=== PATIENT | female | born 1965 | race Caucasian/White ===

== ENCOUNTER → 2020-11-03 13:01 | Outpatient (CLI) | payer OTHER, MEDICAID, SELFPAY ==
[2020-11-03 15:15] LABS: COVID19 -Nasal RAPID Negative (Negative)
== END ==
PROVIDERS: Visit Provider Physician Assistant
DX: Z20.822 Contact with and (suspected) exposure to COVID-19 (principal)
CPT/HCPCS: 87635; C9803

== ENCOUNTER 2020-11-05 14:26 | Day surgery (SDC) | payer OTHER, MEDICAID, SELFPAY ==
[2020-11-05] VITALS (10 sets, daily range): BP systolic 77–128; BP diastolic 40–78; PULSE 62–77; RESP 10–20; TEMP 36.2–37.4; O2SAT 10–100; BMI 18.7
[2020-11-05] MEDS: LACTATED RINGERS 1,000 ML 200 ML IV (14:00)
--- NOTE | 2020-11-05 15:30 | PM.HP.1 ---
History of Present Illness History of Present Illness [place] [facility] [place] Medical History (Updated 11/05/20 @ 14:16 by Keerthi Swartz RN) Alcohol abuse Alcoholic cirrhosis of liver with ascites Hepatic failure Family & Social History Social History: household members family Tobacco & Substance use: Tobacco type cigarettes Smoking Status Current every day smoker alcohol intake former Substance Use Type does not use Meds Home Medications and Allergies Home Medications Medication Instructions Recorded Confirmed Type alprazolam 0.5 mg PO DAILY 11/05/20 11/05/20 History biotin 1,000 mcg PO DAILY 11/05/20 11/05/20 History ferrous sulfate 300 mg PO DAILY 11/05/20 11/05/20 History folic acid 1 mg PO DAILY 11/05/20 11/05/20 History omeprazole 20 mg PO DAILY PRN 11/05/20 11/05/20 History ondansetron 4 mg PO Q6H PRN 11/05/20 11/05/20 History oxycodone 5 mg PO Q4H PRN 11/05/20 11/05/20 History potassium chloride 20 meq PO BID 11/05/20 11/05/20 History rifaximin [Xifaxan] 550 mg PO BID 11/05/20 11/05/20 History Review of Systems Review of Systems ROS: Yes All systems reviewed with the patient and are negative except as otherwise documented Exam Vital Signs (past 8 hours): - 11/05/20 15:07 Temperature 99.3 F Pulse Rate 63 Respiratory Rate 20 Blood Pressure 128/68 Pulse Oximetry 99 Oxygen Delivery Method Room Air Narrative Exam Narrative: Awake alert and oriented x3, pupils equal round reactive to light, oropharynx clear, heart regular rate and rhythm, lungs clear to auscultation bilaterally, abdomen nontender and nondistended, extremities without edema, no gross neurologic deficits noted Assessment & Plan Assessment & Plan narrative: History of cirrhosis, need to rule out variceal. EGD today COVID-19 COVID-19 status: Negative Quality MIPS - Admit Advanced Care Plan / Current Medications Measures: #47 ? Advanced Care Plan Clinician documentation instruction: document at admission. [] I confirmed that the patient's Advance Care Plan is present, code status is documented, or surrogate decision maker is listed in the patient?s medical record. [SATISFIES MIPS PERFORMANCE] If Yes, Stop Here [] The patient?s Advance Care plan is not present because: (select) [MIPS PERFORMANCE EXCEPTION/EXCLUSION] [] I confirmed today that the patient does not wish or was not able to name a surrogate decision maker or provide an Advance Care Plan. [] Hospice care is currently being provided or has been provided this calendar year [] I did NOT confirm today the presence of an Advance Care Plan or surrogate decision maker documented within the patient's medical record. [DOES NOT SATISFY MIPS PERFORMANCE] #130 - Documentation of Current Medications in the Medical Record Clinician documentation instruction: use macro the first time you see a patient. [] I have utilized all available immediate resources to obtain, update, or review the patient?s current medications. [SATISFIES MIPS PERFORMANCE] If Yes, Stop Here [] The patient is not eligible for medication reconciliation; the patient is in an emergent medical situation where delaying treatment would jeopardize the patient?s health. [MIPS PERFORMANCE EXCEPTION/EXCLUSION] [] I did NOT confirm, update or review the patient's current list of medications today. [DOES NOT SATISFY MIPS PERFORMANCE] MIPS - CL Central Venous Catheter Placement Measure: #76 ? Prevention of Central Venous Catheter (CVC) ? Related Bloodstream Infection Clinician documentation instruction: use macro every time you place a central line. [] All elements of Maximal Sterile Barrier Technique, including hand hygiene, skin prep, and sterile ultrasound technique (if used) were followed. [SATISFIES MIPS PERFORMANCE] If Yes, Stop Here [] If ?No?, the medical reason all elements were NOT used for medical reason [] (ex. emergent condition). [] Maximal Sterile Barrier Technique was not followed, no reason provided [DOES NOT SATISFY MIPS PERFORMANCE] MIPS - DC Heart Failure Measures: #5 - Heart Failure (HF): Angiotensin-Converting Enzyme (EDUIN) Inhibitor or Angiotensin Receptor Dex (ARB) Therapy for Left Ventricular Systolic Dysfunction (LVSD) and #8 - Heart Failure (HF): Beta-Dex Therapy for Left Ventricular Systolic Dysfunction (LVSD) Clinician documentation instruction: use macro at every CHF discharge. [] The patient has current or prior documentation of left ventricular ejection fraction (LVEF) less than 40%, or moderate or severely depressed left ventricular systolic function. Answer both: [SATISFIES MIPS PERFORMANCE] [] The patient was prescribed or already taking an Angiotensin-Converting Enzyme (EDUIN) Inhibitor, or Angiotensin Receptor Dex (ARB). [] The patient was prescribed or already taking a beta-dex. If Yes to Both, Stop Here [] Patient not prescribed/taking: [MIPS PERFORMANCE EXCEPTION/EXCLUSION] [] EDUIN or ARB for medical/patient/system reason(s) including [] (ex. allergy, intolerance, contraindication) [] Beta-dex for medical/patient/system reason(s) including [] (ex. allergy, intolerance, contraindication) [] Patient not prescribed/taking: [DOES NOT SATISFY MIPS PERFORMANCE] [] EDUIN or ARB, no reason given [] Beta-dex, no reason given
--- NOTE | 2020-11-05 15:48 | PM.OP.ENDO ---
Operative Date/Time/Diagnoses Date of procedure: 11/05/20 Procedure & Clinicians Study performed: EGD Monitored anesthesia care and monitoring was provided by a staff anesthesiologist Same procedure as scheduled: Yes Indications: History of cirrhosis with esophageal and gastric varices, for surveillance Procedure Notes Procedure in detail: Prior to the procedure, history and physical was performed, and patient medications and allergies were reviewed. Preprocedure nursing history and assessment was reviewed. Patient identification and proposed procedure were verified by the physician and nurse in the procedure room. The physical status of the patient was reassessed after the procedure. After informed consent was obtained including risks, benefits, and alternatives, the scope was passed under direct vision. Throughout the procedure, the patient's blood pressure, pulse, and oxygen saturations were monitored continuously. The upper endoscope was introduced through the mouth and advanced to the 2nd portion of the duodenum. Retroflexion was performed in the stomach. The patient tolerated the procedure well. Grade 1 varices were found in the lower 3rd of the esophagus. They were small in size Type 2 gastroesophageal varices (esophageal varices which extend along the fundus) with no bleeding were found in the fundus of the stomach. There was no other stigmata of bleeding. They measured 1 cm in diameter and compared to the last EGD, appears slightly smaller. Mild portal hypertensive gastropathy was noted in the fundus and body of the stomach. The entire examined duodenum was normal appearing Impression: Grade 1 esophageal varices Type 2 gastroesophageal varices in the fundus which appeared smaller in diameter compared with EGD done 1 year ago Mild portal hypertensive gastropathy in the proximal stomach Normal appearing examined duodenum Complications: other (No complications. EBL 0) Post-procedure Plan for aftercare: Repeat EGD in 1 year for surveillance Resume previous diet Resume home medications Follow-up with Dr. Guillory as previously scheduled Patient has a contact number available for emergencies. The signs and symptoms of potential delayed complications were discussed with the patient. Return to normal activities tomorrow. Written discharge instructions were provided to the patient. Discharge home with escort
== END 2020-11-05 17:09 | disposition home or self-care (01) ==
PROVIDERS: PCP Registered Nurse; Referring Provider Internal Medicine; Visit Provider Internal Medicine
PROC: 0DJ08ZZ Inspection of Upper Intestinal Tract, Via Natural or Artificial Opening Endoscopic (ICD-10-PCS; CPT 43235; principal; 2020-11-05 15:30)
DX: I85.10 Secondary esophageal varices without bleeding (principal); K76.6 Portal hypertension; K70.31 Alcoholic cirrhosis of liver with ascites; F10.10 Alcohol abuse, uncomplicated; F17.210 Nicotine dependence, cigarettes, uncomplicated; K72.90 Hepatic failure, unspecified without coma; K31.89 Other diseases of stomach and duodenum; I86.4 Gastric varices
CPT/HCPCS: 43235